=== PATIENT | female | born 1970 | race African-American/Black ===

== ENCOUNTER 2024-07-04 10:01 | Emergency (ER) | payer SELFPAY ==
[2024-07-04] MEDS ORDERED: Ibuprofen 800 MG TAB ONE (11:47)
== END 2024-07-04 12:03 | disposition home or self-care (01) ==
LOC: ERS 10:01
DX: M75.02 Adhesive capsulitis of left shoulder (principal); I10 Essential (primary) hypertension; Z79.899 Other long term (current) drug therapy
CPT/HCPCS: 99283

== ENCOUNTER 2024-07-26 07:46 | Emergency (ER) | payer SELFPAY ==
[2024-07-26] MEDS ORDERED: Acetaminophen 500 MG TAB ONE (08:15)
[2024-07-26 09:02] LABS: #Basophils 0.05 10x3/uL (0.0-0.2); %Basophils 0.9 % (0.0-1.0); %Eosinophils 1.3 % (0.0-10.0); %Lymphocytes 36.8 % (21.0-51.0); %Neutrophils 54.8 % (42.0-75.0); Hematocrit 41.6 % (36.0-47.0); Hemoglobin 13.1 g/dL (12.0-16.0); Mean Corpuscular HGB CONC 31.5 g/dL (32.0-36.0); Mean Corpuscular Hemoglobin 28.7 pg (27.0-31.0); Mean Corpuscular Volume 91.2 fL (78.0-98.0); Mean Platelet Volume 10.9 fL (7.4-10.4); Platelet Count 301 10x3/uL (130-400); RBC Distribution Width 15.3 % (11.5-14.5); Red Blood Cell (RBC) Count 4.56 mill/uL (4.20-5.40)
[2024-07-26] MEDS ORDERED: Lisinopril 5 MG TAB ONE (09:17)
[2024-07-26] MEDS ORDERED: Amlodipine 5 MG TAB ONE (09:17)
[2024-07-26 09:25] LABS: ALT (SGPT) 12 U/L (8-55); AST (SGOT) 14 U/L (5-34); Albumin 3.9 g/dL (3.5-5.0); Alkaline Phosphatase 122 U/L (40-110); Anion Gap 10 mmol/L (10-20); BUN (Urea Nitrogen) 17 mg/dL (9.8-20.1); Bilirubin, Total 0.3 mg/dL (0.2-1.2); Calc. Creatinine Clearance 0 mL/min (70-130); Calcium 10.1 mg/dL (7.8-10.44); Carbon Dioxide 27 mmol/L (22-29); Chloride 109 mmol/L (98-107); Estimated GFR 52; Glucose 153 mg/dL (70-105); Potassium 4.4 mmol/L (3.5-5.1); Protein, Total 6.9 g/dL (6.0-8.3); Sodium 142 mmol/L (136-145)
[2024-07-26 09:29] LABS: Troponin I Less than 0.010 ng/mL (< 0.028)
[2024-07-26] MEDS ORDERED: carBAMazepine 100 mg Chewable Tablet PO SCH (09:30)
== END 2024-07-26 10:02 | disposition home or self-care (01) ==
LOC: ERS 07:46
DX: I12.9 Hypertensive chronic kidney disease with stage 1 through stage 4 chronic kidney disease, or unspecified chronic kidney disease (principal); N18.9 Chronic kidney disease, unspecified; R29.700 NIHSS score 0; Z76.0 Encounter for issue of repeat prescription
CPT/HCPCS: 36415; 80053; 84484; 85025; 93005; 99284